=== PATIENT | female | born 1960 | race Caucasian/White ===

== ENCOUNTER 2018-10-11 07:53 | Emergency (ER) | payer OTHER ==
[~2018-10-11] VITALS: Ht 167.6 cm; Wt 70.3 kg
== END 2018-10-11 08:51 | disposition home or self-care (01) ==
LOC: ER 07:53
DX: S60.413A Abrasion of left middle finger, initial encounter (principal); W45.8XXA Other foreign body or object entering through skin, initial encounter; Y93.89 Activity, other specified; Y92.89 Other specified places as the place of occurrence of the external cause; Y99.8 Other external cause status

== ENCOUNTER 2024-05-17 07:57 | Emergency (ER) | payer OTHER ==
[~2024-05-17] VITALS: Ht 167.6 cm; Wt 81.6 kg
[2024-05-17] MEDS ORDERED: METFORMIN HCL500 MG (08:16)
[2024-05-17] MEDS ORDERED: EVISTA60 MG PO (08:16)
[2024-05-17] MEDS ORDERED: BENICAR20 MG (08:17)
== END 2024-05-17 10:19 | disposition home or self-care (01) ==
LOC: ER 07:59
DX: S52.122A Displaced fracture of head of left radius, initial encounter for closed fracture (principal); W18.39XA Other fall on same level, initial encounter; Y93.89 Activity, other specified; Y92.89 Other specified places as the place of occurrence of the external cause; Y99.9 Unspecified external cause status; Z88.8 Allergy status to other drugs, medicaments and biological substances; Z91.013 Allergy to seafood

== ENCOUNTER 2024-08-12 07:03 | Outpatient (CLI) | payer OTHER ==
[~2024-08-12 07:03] MED LIST: BENICAR20 MG; EVISTA60 MG PO; METFORMIN HCL500 MG
== END 2024-08-12 07:10 | disposition home or self-care (01) ==
LOC: RAD 07:03
PROVIDERS: ATTEND Ophthalmology
DX: R91.8 Other nonspecific abnormal finding of lung field (principal)

== ENCOUNTER → 2024-08-12 08:07 | Outpatient (CLI) | payer OTHER | END | disposition home or self-care (01) | LOC: EKG 08:07 | PROVIDERS: ATTEND Ophthalmology | DX: R94.31 Abnormal electrocardiogram [ECG] [EKG] (principal) ==

== ENCOUNTER 2024-08-30 07:07 | Outpatient (CLI) | payer OTHER | END 2024-08-30 07:08 | disposition home or self-care (01) | LOC: NUCLEAR 07:07 | PROVIDERS: ATTEND Internal Medicine | DX: I20.9 Angina pectoris, unspecified (principal) ==